=== PATIENT | female | born 1950 | race Two or more races ===

== ENCOUNTER 2018-11-18 08:22 | Emergency (ER) | payer MEDICARE ==
[~2018-11-18] VITALS: Ht 160 cm; Wt 78.9 kg
[2018-11-18] MEDS ORDERED: LOSARTAN POTASS50 MG ORAL (08:30)
[2018-11-18] MEDS ORDERED: HYDROCHLOROTHIA25 MG ORAL (08:30)
[2018-11-18 08:42] VITALS: BP 123/78
--- NOTE | 2018-11-18 08:43 | NUR ---
ER Nurse Note: Pt came from home c/o sore throat, loss of voice, swollen lymph nodes on RT side of neck. Pt denies travel, trauma to throat, recent sickness. Pt has a hoarse voice, stated difficulty swollowing. Cap refill less than 3 secs, lung sounds clear. O2 sat >94%RA. Will continue to [facility].
--- NOTE | 2018-11-18 08:51 | Emergency Room Report ---
History of Present Illness General Chief Complaint: Sore Throat Source: Patient Present Illness HPI Patient presents with complaints of sore throat She also reports that she has lost her voice and is very scratchy Denies any chest pain or shortness of breath she has however had also a cough Patient also complains of right ear pain She feels that everything started soon after having her gynecology appointment at the doctor's office Denies any rash denies any vomiting or diarrhea Pain is worse with swallowing Allergies: Coded Allergies: No Known Allergies (Unverified , 11/18/18) Patient History Past Medical History: see triage record Pertinent Family History: none Last Menstrual Period: menopause Reviewed Nursing Documentation: PMH: Agreed; PSxH: Agreed Nursing Documentation-PMH Past Medical History: No History, Except For Hx Hypertension: Yes Review of Systems All Other Systems: negative except mentioned in HPI Physical Exam Vital Signs Date Time Temp Pulse Resp B/P (MAP) Pulse Ox O2 Delivery O2 Flow Rate FiO2 11/18/18 08:25 98.1 80 18 123/78 (93) 97 Room Air Sp02 EP Interpretation: reviewed, normal General Appearance: well appearing, no apparent distress Head: normocephalic, atraumatic Eyes: bilateral eye PERRL, bilateral eye EOMI ENT: hearing grossly normal, TMs + canals normal, uvula midline, pharyngeal erythema Neck: full range of motion, supple, no meningismus, no bony tend Respiratory: lungs clear, normal breath sounds, no rhonchi, no respiratory distress, no retraction, no accessory muscle use Cardiovascular #1: normal peripheral pulses, regular rate, rhythm, no edema, no gallop, no JVD, no murmur Gastrointestinal: normal bowel sounds, non tender, soft, no mass, no organomegaly, non-distended, no guarding, no hernia, no pulsatile mass, no rebound Genitourinary: no CVA tenderness Musculoskeletal: normal inspection Neurologic: oriented x3, responsive, fermentation operator III-XII nml as tested, motor strength/ tone normal, sensory intact Psychiatric: mood/affect normal Lymphatic: adenopathy - Right anterior cervical Medical Decision Making Diagnostic Impression: Primary Impression: Pharyngitis Additional Impression: Laryngitis ER Course Multiple differentials in consideration Including but not limited to pharyngitis, laryngitis, peritonsillar abscess, meningitis Patient's voice is diminished however does not sound consistent with peritonsillar abscess bogginess Given the pharyngeal exam patient is placed on antibiotics and requires close outpatient follow-up Last Vital Signs Date Time Temp Pulse Resp B/P (MAP) Pulse Ox O2 Delivery O2 Flow Rate FiO2 11/18/18 08:42 98.1 82 18 123/78 97 Room Air Status: unchanged Disposition: HOME, SELF-CARE Condition: Stable Additional Instructions: Patient is provided with the discharge instructions notified to follow up with primary doctor in the next 2-3 days otherwise return to the er with any worsening symptoms. Please note that this report is being documented using [employer] technology. This can lead to erroneous entry secondary to incorrect interpretation by the dictating instrument. Juwan Mchugh DO Nov 18, 2018 08:51
[2018-11-18] MEDS ORDERED: AUGMENTIN 875-1 EAC1 ORAL (08:52)
[2018-11-18] MEDS ORDERED: PREDNISONE20 MG ORAL (08:52)
[2018-11-18] MEDS ORDERED: IBUPROFEN600 MG ORAL (08:52)
[2018-11-18 09:05] VITALS: BP 123/78
--- NOTE | 2018-11-18 09:05 | NUR ---
ER Nurse Note: Pt seen, treated, medically cleared for discharge by ERMD. Discharge instuctions and prescriptions given with repeat verbalization by pt. All orders completed per ERMD orders. Pt a&ox4, VSS, no signs of distress. Pt denies pain. ID band removed. Pt ambulaitory with steady gait, left with all belongings, left with own transportation.
== END 2018-11-18 09:05 | disposition home or self-care (01) ==
LOC: EMR 08:49
DX: J02.9 Acute pharyngitis, unspecified (principal); J04.0 Acute laryngitis; I10 Essential (primary) hypertension; H92.01 Otalgia, right ear
CPT/HCPCS: 99281